=== PATIENT | female | born 1965 | race Caucasian/White ===

== ENCOUNTER 2016-10-31 20:17 | Emergency (ER) | payer SELFPAY ==
[2016-10-31] MEDS ORDERED: Aspirin Low Dose CHEW TAB* 81 MG PO ONE (21:08)
[2016-10-31 21:54] LABS: Hematocrit 36 % (35-47); Hemoglobin 12.6 g/dl (12.0-16.0); Mean Corpuscular HGB Conc 36 g/dl (31-36); Mean Corpuscular Hemoglobin 34 pg (27-31); Mean Corpuscular Volume 95 fL (80-97); Mean Platelet Volume 8 um3 (7.4-10.4); Red Blood Count 3.75 10^6/ul (4.0-5.4); Red Cell Distribution Width 13 % (10.5-15); White Blood Count 10.9 10^3/ul (3.5-10.8)
[2016-10-31 22:07] LABS: Albumin 4.4 g/dL (3.2-5.2); BUN/Creatinine Ratio 9.6 (8-20); Calcium 9.8 mg/dL (8.6-10.3); EGFR African American 53.2 (>60); EGFR Non-African American 41.3 (>60); Globulin 2.8 g/dL (2-4); Potassium 3.3 mmol/L (3.5-5.0); Total Bilirubin 0.6 mg/dL (0.2-1.0); Total Protein 7.2 g/dL (6.4-8.9)
[2016-10-31] MEDS ORDERED: LORazepam INJ* 2 MG/ML 1 ML VIAL IV PUSH ONE (22:09)
[2016-10-31] MEDS ORDERED: Ondansetron INJ* 2 MG/ML VIAL IV ONE (22:10)
--- NOTE | 2016-10-31 22:17 | RAD ---
Indication: Palpitations. Cardiac disease. Anxiety. Comparison: August 27, 2014 Technique: Upright AP 2138 hours Report: Suboptimal inspiration with associated crowding of the pulmonary markings and subsegmental atelectasis. Negative for pleural effusion or pneumothorax. Negative for cardiomegaly. Unremarkable central pulmonary vasculature. IMPRESSION: Suboptimal inspiration for this patient compared with the prior exam with associated mild subsegmental atelectasis. No additional radiographic abnormality.
[2016-10-31 22:38] LABS: TSH (Thyroid Stimulating Horm) 3.5 mcIU/mL (0.34-5.60)
[2016-10-31] MEDS ORDERED: Iodixanol* (CONTRAST) 320 MG/ML 100 ML SDV IV ONE (23:35)
[2016-11-01 00:41] LABS: Urine Bilirubin Negative (Negative); Urine Glucose Negative (Negative); Urine Nitrite Negative (Negative)
[2016-11-01 01:24] VITALS: BP 127/88
--- NOTE | 2016-11-01 08:00 | RAD ---
HISTORY: Elevated d-dimer, tachycardia COMPARISONS: June 30, 2013 TECHNIQUE: Multiple contiguous axial CT scans of the chest were obtained after the administration of nonionic intravenous contrast, timed to the pulmonary arterial phase of contrast enhancement.. Coronal and sagittal multiplanar reformations are also submitted for review. FINDINGS: Evaluation is limited by suboptimal contrast enhancement. The attenuation of the main pulmonary artery at the level of the aorta is between 200-250 Hounsfield units which is of diagnostic borderline quality for the detection of pulmonary embolism. NECK AND THYROID: The lower neck and thyroid are unremarkable. CHEST WALL: There is no lower cervical, axillary, or supraclavicular lymphadenopathy by size criteria. HEART AND PERICARDIUM: The heart is unremarkable. AORTA AND PULMONARY VASCULATURE: The aorta and pulmonary vasculature are normal. MEDIASTINUM: There is no mediastinal lymphadenopathy by size criteria. MARINO: There is no hilar lymphadenopathy by size criteria. AIRWAY AND ESOPHAGUS: The airway is unremarkable, without endobronchial filling defect. The esophagus is grossly normal. LUNG PARENCHYMA: The lungs are clear. PLEURA: No pleural abnormalities are noted. UPPER ABDOMEN: There is a low-attenuation lesion of the left lobe of liver measuring simple fluid in attenuation, measuring 2 cm in size, most consistent with a hepatic cyst. BONES AND SOFT TISSUES: No bone or soft tissue abnormalities are noted. OTHER: None. IMPRESSION: LIMITED STUDY. WITHIN THE LIMITATIONS OF THE STUDY, THERE IS NO PULMONARY ARTERIAL FILLING DEFECT TO SUGGEST PULMONARY EMBOLISM
--- NOTE | 2016-11-01 13:08 | ED ---
Anisha Brcie Rebecca, scribed for Maira Saldivar MD on 10/31/16 at 2110 . Palpitations / Dysrhythmia - HPI Summary HPI Summary: Pt is a 51 y/o F BIBA who presents to ED stating she is experiencing an anxiety attack. Pt states that she had just eaten and was watching television when at 1900 she began experiencing severe epigastric pain, "right below the breasts" as well as N/V and palpitations characterized as fast. 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 Sx aggravated and alleviated by nothing. Denies fever, cough, CP, LE pain and edema. PMHx and FHx mitral valve prolapse. Pt reports that these symptoms are similar to prior mitral valve prolapse complications. Takes Ambien, Metoprolol, Paxil, HCTZ and an herbal supplement for menopasuse. - History of Current Complaint Chief Complaint: EDDysrhythmPalp Time Seen by Provider: 10/31/16 21:08 Hx Obtained From: Patient Onset/Duration: Sudden Onset, Lasting Hours, Still Present Character: Fast Aggravating: Nothing Alleviating: Nothing Associated Signs & Symptoms: Nausea, Vomiting Related History: Similar Episode/Dx as - Prior anxiety attacks - Allergy/Home Medications Allergies/Adverse Reactions: Allergies Allergy/AdvReac Type Severity Reaction Status Date / Time Milk-related Compounds Allergy Intermediate Unknown Verified 09/28/14 14:18 Reaction Details ENVIRONMENTAL Allergy Rash Uncoded 07/25/14 11:14 PMH/Surg Hx/FS Hx/Imm Hx Endocrine/Hematology History: Denies: Hx Diabetes, Hx Thyroid Disease Cardiovascular History: Reports: Hx Valvular Heart Disease - MVP, Other Cardiovascular Problems/Disorders - MVP Denies: Hx Congestive Heart Failure, Hx Hypertension, Hx Pacemaker/ICD Respiratory History: Denies: Hx Asthma, Hx Chronic Obstructive Pulmonary Disease (COPD), Other Respiratory Problems/Disorders GI History: Denies: Hx Ulcer, Other GI Disorders History: Denies: Hx Renal Disease, Other Problems/Disorders Musculoskeletal History: Reports: Hx Arthritis - RIGHT THUMB, BILATERAL KNEES Denies: Other Musculoskeletal History Sensory History: Reports: Hx Contacts or Glasses - GLASSES Denies: Hx Hearing Aid Opthamlomology History: Reports: Hx Contacts or Glasses - GLASSES Psychiatric History: Reports: Hx Anxiety - ON MEDS, Hx Depression - ON MEDS Denies: Hx Panic Disorder - Surgical History Surgery Procedure, Year, and Place: [address], [facility] [place] 2010 HYSTERECTOMY( UTERUS AND CERVIX ONLY) [facility] 2013 LAPAROSCOPIC CHOLECYSTECTOMY, [place]. RIGHT THUMB, 2013, [facility] [place] Hx Anesthesia Reactions: No Infectious Disease History: Denies: Hx Hepatitis, Hx Human Immunodeficiency Virus (HIV), Traveled Outside the [place] in Last 30 Days - Family History Known Family History: Positive: Other - Mitral valve prolapse - Social History Alcohol Use: None Alcohol Amount: ONCE A MONTH Substance Use Type: Reports: None Smoking Status (MU): Never Smoked Tobacco Have You Smoked in the Last Year: No Review of Systems Negative: Fever Positive: Palpitations - fast. Negative: Chest Pain Negative: Cough Positive: Abdominal Pain - Epigastric pain, Vomiting, Nausea Positive: Other - NEGATIVE: LE pain. Negative: Edema All Other Systems Reviewed And Are Negative: Yes Physical Exam Triage Information Reviewed: Yes Vital Signs On Initial Exam: Initial Vitals Temp Pulse Resp BP Pulse Ox 97.4 F 95 18 144/91 100 10/31/16 20:22 10/31/16 20:22 10/31/16 20:22 10/31/16 20:22 10/31/16 20:22 Vital Signs Reviewed: Yes Appearance: Positive: Well-Nourished, Ill-Appearing, Pain Distress - Uncomfortable Skin: Positive: Warm, Skin Color Reflects Adequate Perfusion Head/Face: Positive: Normal Head/Face Inspection Eyes: Positive: Normal ENT: Positive: Normal ENT inspection Neck: Positive: Supple Respiratory/Lung Sounds: Positive: Clear to Auscultation, Breath Sounds Present , Other - HYperventilating Cardiovascular: Positive: RRR, Pulses are Symmetrical in both Upper and Lower Extremities. Negative: Murmur, Leg Edema Left, Leg Edema Right Abdomen Description: Positive: Soft, Other: - Epigastric tenderness Bowel Sounds: Positive: Present Musculoskeletal: Positive: Normal, Strength/ROM Intact, Other - NEGATIVE: calf pain. Negative: Edema Left, Edema Right Neurological: Positive: Sensory/Motor Intact, Alert, Oriented to Person Place, Time, Facial Symmetry, Speech Normal Psychiatric: Positive: Normal - Laz Coma Scale Coma Scale Total: 15 Diagnostics - Vital Signs Vital Signs Temp Pulse Resp BP Pulse Ox 10/31/16 20:22 97.4 F 95 18 144/91 100 - Laboratory Lab Results: Lab Results 10/31/16 10/31/16 10/31/16 Range/Units 21:43 21:43 21:43 WBC 10.9 H (3.5-10.8) 10^3/ul RBC 3.75 L (4.0-5.4) 10^6/ul Hgb 12.6 (12.0-16.0) g/dl Hct 36 (35-47) % MCV 95 (80-97) fL MCH 34 H (27-31) pg MCHC 36 (31-36) g/dl RDW 13 (10.5-15) % Plt Count 282 (150-450) 10^3/ul MPV 8 (7.4-10.4) um3 Neut % (Auto) 76.6 (38-83) % Lymph % (Auto) 16.2 L (25-47) % Montgomery % (Auto) 5.4 (1-9) % Eos % (Auto) 0.3 (0-6) % Baso % (Auto) 1.5 (0-2) % Absolute Neuts (auto) 8.4 H (1.5-7.7) 10^3/ul Absolute Lymphs (auto) 1.8 (1.0-4.8) 10^3/ul Absolute Monos (auto) 0.6 (0-0.8) 10^3/ul Absolute Eos (auto) 0 (0-0.6) 10^3/ul Absolute Basos (auto) 0.2 (0-0.2) 10^3/ul Absolute Nucleated RBC 0 10^3/ul Nucleated RBC % 0 INR (Anticoag Therapy) (0.89-1.11) D-Dimer, Quantitative (Less Than 230) ng/mL Sodium 137 (133-145) mmol/L Potassium 3.3 L (3.5-5.0) mmol/L Chloride 100 L (101-111) mmol/L Carbon Dioxide 27 (22-32) mmol/L Anion Gap 10 (2-11) mmol/L BUN 13 (6-24) mg/dL Creatinine 1.35 H (0.51-0.95) mg/dL Est GFR ( Amer) 53.2 (>60) Est GFR (Non-Af Amer) 41.3 (>60) BUN/Creatinine Ratio 9.6 (8-20) Glucose 171 H (70-100) mg/dL Lactic Acid (0.5-2.0) mmol/L Calcium 9.8 (8.6-10.3) mg/dL Magnesium 2.0 (1.9-2.7) mg/dL Total Bilirubin 0.60 (0.2-1.0) mg/dL AST 182 H (13-39) U/L ALT 68 H (7-52) U/L Alkaline Phosphatase 107 H (34-104) U/L Total Creatine Kinase 86 (10-223) U/L CK-MB (CK-2) 1.3 (0.6-6.3) ng/mL Troponin I 0.00 (<0.04) ng/mL B-Natriuretic Peptide 36 ( - 100) pg/mL Total Protein 7.2 (6.4-8.9) g/dL Albumin 4.4 (3.2-5.2) g/dL Globulin 2.8 (2-4) g/dL Albumin/Globulin Ratio 1.6 (1-3) TSH 3.50 (0.34-5.60) mcIU/mL Urine Color Urine Appearance Urine pH (5-9) Ur Specific [place] (1.010-1.030) Urine Protein (Negative) Urine Ketones (Negative) Urine Blood (Negative) Urine Nitrate (Negative) Urine Bilirubin (Negative) Urine Urobilinogen (Negative) Ur Leukocyte Esterase (Negative) Urine Glucose (Negative) 10/31/16 10/31/16 11/01/16 Range/Units 21:43 21:43 00:33 WBC (3.5-10.8) 10^3/ul RBC (4.0-5.4) 10^6/ul Hgb (12.0-16.0) g/dl Hct (35-47) % MCV (80-97) fL MCH (27-31) pg MCHC (31-36) g/dl RDW (10.5-15) % Plt Count (150-450) 10^3/ul MPV (7.4-10.4) um3 Neut % (Auto) (38-83) % Lymph % (Auto) (25-47) % Montgomery % (Auto) (1-9) % Eos % (Auto) (0-6) % Baso % (Auto) (0-2) % Absolute Neuts (auto) (1.5-7.7) 10^3/ul Absolute Lymphs (auto) (1.0-4.8) 10^3/ul Absolute Monos (auto) (0-0.8) 10^3/ul Absolute Eos (auto) (0-0.6) 10^3/ul Absolute Basos (auto) (0-0.2) 10^3/ul Absolute Nucleated RBC 10^3/ul Nucleated RBC % INR (Anticoag Therapy) 0.86 L (0.89-1.11) D-Dimer, Quantitative 328 H (Less Than 230) ng/mL Sodium (133-145) mmol/L Potassium (3.5-5.0) mmol/L Chloride (101-111) mmol/L Carbon Dioxide (22-32) mmol/L Anion Gap (2-11) mmol/L BUN (6-24) mg/dL Creatinine (0.51-0.95) mg/dL Est GFR ( Amer) (>60) Est GFR (Non-Af Amer) (>60) BUN/Creatinine Ratio (8-20) Glucose (70-100) mg/dL Lactic Acid 4.1 H* (0.5-2.0) mmol/L Calcium (8.6-10.3) mg/dL Magnesium (1.9-2.7) mg/dL Total Bilirubin (0.2-1.0) mg/dL AST (13-39) U/L ALT (7-52) U/L Alkaline Phosphatase (34-104) U/L Total Creatine Kinase (10-223) U/L CK-MB (CK-2) (0.6-6.3) ng/mL Troponin I (<0.04) ng/mL B-Natriuretic Peptide ( - 100) pg/mL Total Protein (6.4-8.9) g/dL Albumin (3.2-5.2) g/dL Globulin (2-4) g/dL Albumin/Globulin Ratio (1-3) TSH (0.34-5.60) mcIU/mL Urine Color Straw Urine Appearance Clear Urine pH 7.5 (5-9) Ur Specific [place] 1.005 L (1.010-1.030) Urine Protein Negative (Negative) Urine Ketones Negative (Negative) Urine Blood Negative (Negative) Urine Nitrate Negative (Negative) Urine Bilirubin Negative (Negative) Urine Urobilinogen Negative (Negative) Ur Leukocyte Esterase Negative (Negative) Urine Glucose Negative (Negative) Result Diagrams: 10/31/16 21:43 10/31/16 21:43 Lab Statement: Any lab studies that have been ordered have been reviewed, and results considered in the medical decision making process. - Radiology CXR Xray Interpretation: Positive (See Comments) - Suboptimal inspiration for this patient compared with the prior exam with associated mild subsegmental atelectasis. No additional radiographic abnormality. ED physician reviewed radiology report and agrees. Radiology Interpretation Completed By: Radiologist - CT CTA Chest CT Interpretation: No Acute Changes - No acute pathology. Possible liver cyst can be followed up with ultrasound. ED phsyicain reviewed radiology report and agrees. CT Interpretation Completed By: Radiologist - EKG 2018 Cardiac Rate: NL - 85 bpm EKG Rhythm: Sinus Rhythm EKG Interpretation: Nl AV/IV CT, prolonged QTC (521), nl axis, Q waves in lead 3 EKG Comparison: Other - Q waves are new, as compared with EKG on 09/28/2014. No other changes. Re-Evaluation - Re-Evaluation First Eval Re-Evaluation Time: 23:35 Comment: Updating the pt on results. Second Eval Re-Evaluation Time: 01:03 Change: Improved Comment: Discussed CTA Chest results. Pain is gone, HR is in the 80s and ready to be D/C. Course/Dx - Course Assessment/Plan: Pt is a 51 y/o F BIBA who presents to ED stating she is experiencing an anxiety attack. Pt states that she had just eaten and was watching television when at 1900 she began experiencing severe epigastric pain, "right below the breasts" as well as N/V and palpitations characterized as fast. 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 Denies fever, cough, CP, LE pain and edema. PMHx and FHx mitral valve prolapse. Pt reports that these symptoms are similar to prior mitral valve prolapse complications. Takes Ambien, Metoprolol, Paxil, HCTZ and an herbal supplement for menopasuse. CXR reveals "suboptimal inspiration for this patient compared with the prior exam with associated mild subsegmental atelectasis." CTA Chest reveals no acute pathology and possible liver cyst. In the ED course, pt received Ativan, Zofran and ASA which improved sx. She will be D/C to home with Dx of chest pain, possible liver cyst and palpitations and a follow up with her PCP. She understands and agrees. Patient medications reviewed this visit. Allergies noted. Elevated BP noted and advised to f/u with PCP. Critical care time of 30 minutes. - Diagnoses Provider Diagnoses: Palpitations, Chest pain, possible liver cyst - Critical Care Time Critical Care Time: 30-74 min - 30 minutes Discharge - Discharge Plan Condition: Stable Disposition: HOME Patient Education Materials: Chest Pain (ED), Palpitations (ED) Referrals: Dillon Loya MD [Medical Doctor] - As Soon As Possible Hortensia Case NP [Primary Care Provider] - Additional Instructions: Your CTA of the chest did not show a pulmonary embolus or any abnormalities, except a possible liver cyst, which can be followed up with your family doctor. The report tonight is just preliminary, but if they still believe a possible liver cyst is present, then your doctor may want to do an ultrasound to evaluate this further. We have given you the name of a sand mixer to follow up on your mitral valve prolapse. Return to the ER if you have any new or worsening symptoms. The documentation as recorded by the Anisha walters Rebecca accurately reflects the service I personally performed and the decisions made by , Maira Saldivar MD.
== END 2016-11-01 01:37 | disposition home or self-care (01) ==
LOC: ED 20:17
DX: R00.2 Palpitations (principal); R07.9 Chest pain, unspecified; F41.8 Other specified anxiety disorders; M19.90 Unspecified osteoarthritis, unspecified site; I38 Endocarditis, valve unspecified
CPT/HCPCS: 71010; 71275; 80053; 81003; 82550; 82553; 83605; 83735; 83880; 84443; 84484; 85025; 85379; 85610; 93005; 96374; 96375; 99282; A9270-GY; J2060; J2405; Q9967

== ENCOUNTER 2017-09-17 16:02 | Emergency (ER) | payer OTHER ==
[2017-09-17] MEDS ORDERED: NS 0.9% 1000 ML* 1,000 ML IV ONE (16:14)
[2017-09-17] MEDS ORDERED: LORazepam INJ* 2 MG/ML 1 ML VIAL IV PUSH ONE (16:41)
--- NOTE | 2017-09-17 16:42 | RAD ---
INDICATION: Palpitations COMPARISON: October 31, 2016 TECHNIQUE: An AP portable view obtained at 1629 hours is submitted. FINDINGS: Bones/Soft Tissues: There are no acute bony findings. Cardiomediastinal: The cardiomediastinal silhouette is normal. Lungs: There are no infiltrates. Pleura: There are no pleural effusions. Other: None IMPRESSION: NO ACTIVE DISEASE.
[2017-09-17 17:00] LABS: ABS Basophils 0.1 10^3/ul (0-0.2); ABS Eosinophils 0 10^3/ul (0-0.6); ABS Lymphocytes 1.9 10^3/ul (1.0-4.8); ABS Monocytes 0.5 10^3/ul (0-0.8); ABS Neutrophils 9.4 10^3/ul (1.5-7.7); ABS Nucleated RBC 0 10^3/ul; Eosinophil % 0.2 % (0-6); Hematocrit 38 % (35-47); Hemoglobin 13.3 g/dl (12.0-16.0); Mean Corpuscular HGB Conc 35 g/dl (31-36); Mean Corpuscular Hemoglobin 33 pg (27-31); Mean Corpuscular Volume 94 fL (80-97); Mean Platelet Volume 8.2 um3 (7.4-10.4); Nucleated Red Blood Cells % 0; Platelet Count 315 10^3/ul (150-450); Red Blood Count 4.02 10^6/ul (4.00-5.40); Red Cell Distribution Width 13 % (10.5-15); White Blood Count 11.9 10^3/ul (3.5-10.8)
[2017-09-17 17:22] LABS: EGFR Non-African American 56.3 (>60)
--- NOTE | 2017-09-17 17:28 | ED ---
Palpitations / Dysrhythmia - HPI Summary HPI Summary: This is selena Anujlaverne Hoskins documenting for attending Dr. Nasir Schaffer MD. A 52 y/o female presents to the ED c/o heart palpitations. According to the patient, she had a Mitral Valve Prolapse where she has heart palpitations once in a while. She was relaxing today and suddenly felt weird. She started to have panic attacks and anxiety along with the feeling intermittently. She noted that she normally has much better control than today. In the ED room, the patient has a pulse of 89 BPM, O2 saturation of 98% and blood pressure of 136/100. She denies any LOC, CP or SOB, however, she vomited earlier. 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 Several ECHO's were done however it came back negative. As per triage, "patient having palpitations today with anxiety. is currently having a bad divorce. does have mitral valve prolapse and with increased stress or caffiene it gives her palpitations. did have ativan today to try and calm down but it did not work". Current medications are Paxil (50 mg BID), betablockers and for her blood pressure. - History of Current Complaint Chief Complaint: EDDysrhythmPalp Time Seen by Provider: 09/17/17 16:13 Hx Obtained From: Patient Onset/Duration: Sudden Onset, Lasting Hours - Intermittent, Still Present Severity Currently: None Character: Skipped Beats Aggravating: Nothing Alleviating: Nothing Associated Signs & Symptoms: Vomiting - Allergy/Home Medications Allergies/Adverse Reactions: Allergies Allergy/AdvReac Type Severity Reaction Status Date / Time Milk Containing Products Allergy Rash Verified 09/17/17 17:58 ENVIRONMENTAL Allergy Rash Uncoded 07/25/14 11:14 PMH/Surg Hx/FS Hx/Imm Hx Endocrine/Hematology History: Denies: Hx Diabetes, Hx Thyroid Disease Cardiovascular History: Reports: Hx Valvular Heart Disease - MVP, Other Cardiovascular Problems/Disorders - MVP Denies: Hx Congestive Heart Failure, Hx Hypertension, Hx Pacemaker/ICD Respiratory History: Denies: Hx Asthma, Hx Chronic Obstructive Pulmonary Disease (COPD), Other Respiratory Problems/Disorders GI History: Denies: Hx Ulcer, Other GI Disorders History: Denies: Hx Dialysis, Hx Renal Disease, Other Problems/Disorders Musculoskeletal History: Reports: Hx Arthritis - RIGHT THUMB, BILATERAL KNEES Denies: Other Musculoskeletal History Sensory History: Reports: Hx Contacts or Glasses - GLASSES Denies: Hx Hearing Aid Opthamlomology History: Reports: Hx Contacts or Glasses - GLASSES Psychiatric History: Reports: Hx Anxiety - ON MEDS, Hx Depression - ON MEDS Denies: Hx Panic Disorder - Surgical History Surgery Procedure, Year, and Place: 1990 [place] [facility] [place]( [place]TERUS AND CERVIX ONLY) [facility] 2013 LAPAROSCOPIC CHOLECYSTECTOMY, [place]. RIGHT THUMB, 2013, [facility] [place] Anesthesia Reactions: No Infectious Disease History: No Infectious Disease History: Denies: Hx Hepatitis, Hx Human Immunodeficiency Virus (HIV), Traveled Outside the [place] in Last 30 Days - Family History Known Family History: Positive: Other - Mitral valve prolapse - Social History Alcohol Use: None Alcohol Amount: ONCE A MONTH Substance Use Type: Reports: None Smoking Status (MU): Never Smoked Tobacco Have You Smoked in the Last Year: No Review of Systems Negative: Fever Positive: Palpitations. Negative: Chest Pain Negative: Shortness Of Breath Positive: Vomiting Neurological: Other - NEGATIVE: LOC All Other Systems Reviewed And Are Negative: Yes Physical Exam - Summary Physical Exam Summary: VITAL SIGNS: Reviewed. GENERAL: Patient is a well-developed and nourished female who is lying comfortable in the stretcher. Patient is not in any acute respiratory distress. HEAD AND FACE: No signs of trauma. No ecchymosis, hematomas or skull depressions. No sinus tenderness. EYES: PERRLA, EOMI x 2, No injected conjunctiva, no nystagmus. EARS: Hearing grossly intact. Ear canals and tympanic membranes are within normal limits. MOUTH: Oropharynx within normal limits. NECK: Supple, trachea is midline, no adenopathy, no JVD, no carotid bruit, no c- spine tenderness, neck with full ROM. CHEST: Symmetric, no tenderness at palpation LUNGS: Clear to auscultation bilaterally. No wheezing or crackles. CVS: Regular rate and rhythm, S1 and S2 present, no murmurs or gallops appreciated. ABDOMEN: Soft, non-tender. No signs of distention. No rebound no guarding, and no masses palpated. Bowel sounds are normal. EXTREMITIES: FROM in all major joints, no edema, no cyanosis or clubbing. NEURO: Alert and oriented x 3. No acute neurological deficits. Speech is normal and follows commands. SKIN: Dry and warm Triage Information Reviewed: Yes Vital Signs On Initial Exam: Initial Vitals Temp Pulse Resp BP Pulse Ox 98.8 F 87 21 135/100 98 09/17/17 16:15 09/17/17 16:15 09/17/17 16:15 09/17/17 16:15 09/17/17 16:15 Vital Signs Reviewed: Yes Diagnostics - Vital Signs Vital Signs Temp Pulse Resp BP Pulse Ox 09/17/17 17:08 18 09/17/17 16:15 98.8 F 87 21 135/100 98 - Laboratory Lab Results: Lab Results 09/17/17 09/17/17 09/17/17 Range/Units 16:52 16:52 16:52 WBC 11.9 H (3.5-10.8) 10^3/ul RBC 4.02 (4.00-5.40) 10^6/ul Hgb 13.3 (12.0-16.0) g/dl Hct 38 (35-47) % MCV 94 (80-97) fL MCH 33 H (27-31) pg MCHC 35 (31-36) g/dl RDW 13 (10.5-15) % Plt Count 315 (150-450) 10^3/ul MPV 8.2 (7.4-10.4) um3 Neut % (Auto) 79.0 (38-83) % Lymph % (Auto) 16.0 L (25-47) % [place] % (Auto) 4.1 (0-7) % Eos % (Auto) 0.2 (0-6) % Baso % (Auto) 0.7 (0-2) % Absolute Neuts (auto) 9.4 H (1.5-7.7) 10^3/ul Absolute Lymphs (auto) 1.9 (1.0-4.8) 10^3/ul Absolute Monos (auto) 0.5 (0-0.8) 10^3/ul Absolute Eos (auto) 0 (0-0.6) 10^3/ul Absolute Basos (auto) 0.1 (0-0.2) 10^3/ul Absolute Nucleated RBC 0 10^3/ul Nucleated RBC % 0 D-Dimer, Quantitative < 200 (Less Than 230) ng/mL Sodium 138 (135-145) mmol/L Potassium 3.2 L (3.5-5.0) mmol/L Chloride 102 (101-111) mmol/L Carbon Dioxide 24 (22-32) mmol/L Anion Gap 12 H (2-11) mmol/L BUN 11 (6-24) mg/dL Creatinine 1.03 H (0.51-0.95) mg/dL Est GFR ( Amer) 68.1 (>60) Est GFR (Non-Af Amer) 56.3 (>60) BUN/Creatinine Ratio 10.7 (8-20) Glucose 154 H (70-100) mg/dL Lactic Acid (0.5-2.0) mmol/L Calcium 9.4 (8.6-10.3) mg/dL Magnesium 1.7 L (1.9-2.7) mg/dL Total Bilirubin 0.30 (0.2-1.0) mg/dL AST 21 (13-39) U/L ALT 20 (7-52) U/L Alkaline Phosphatase 90 (34-104) U/L Total Creatine Kinase 90 (10-223) U/L Troponin I 0.00 (<0.04) ng/mL Total Protein 7.0 (6.4-8.9) g/dL Albumin 4.0 (3.2-5.2) g/dL Globulin 3.0 (2-4) g/dL Albumin/Globulin Ratio 1.3 (1-3) TSH Pending 09/17/17 Range/Units 16:52 WBC (3.5-10.8) 10^3/ul RBC (4.00-5.40) 10^6/ul Hgb (12.0-16.0) g/dl Hct (35-47) % MCV (80-97) fL MCH (27-31) pg MCHC (31-36) g/dl RDW (10.5-15) % Plt Count (150-450) 10^3/ul MPV (7.4-10.4) um3 Neut % (Auto) (38-83) % Lymph % (Auto) (25-47) % [place] % (Auto) (0-7) % Eos % (Auto) (0-6) % Baso % (Auto) (0-2) % Absolute Neuts (auto) (1.5-7.7) 10^3/ul Absolute Lymphs (auto) (1.0-4.8) 10^3/ul Absolute Monos (auto) (0-0.8) 10^3/ul Absolute Eos (auto) (0-0.6) 10^3/ul Absolute Basos (auto) (0-0.2) 10^3/ul Absolute Nucleated RBC 10^3/ul Nucleated RBC % D-Dimer, Quantitative (Less Than 230) ng/mL Sodium (135-145) mmol/L Potassium (3.5-5.0) mmol/L Chloride (101-111) mmol/L Carbon Dioxide (22-32) mmol/L Anion Gap (2-11) mmol/L BUN (6-24) mg/dL Creatinine (0.51-0.95) mg/dL Est GFR ( Amer) (>60) Est GFR (Non-Af Amer) (>60) BUN/Creatinine Ratio (8-20) Glucose (70-100) mg/dL Lactic Acid 4.4 H* (0.5-2.0) mmol/L Calcium (8.6-10.3) mg/dL Magnesium (1.9-2.7) mg/dL Total Bilirubin (0.2-1.0) mg/dL AST (13-39) U/L ALT (7-52) U/L Alkaline Phosphatase (34-104) U/L Total Creatine Kinase (10-223) U/L Troponin I (<0.04) ng/mL Total Protein (6.4-8.9) g/dL Albumin (3.2-5.2) g/dL Globulin (2-4) g/dL Albumin/Globulin Ratio (1-3) TSH Result Diagrams: 09/17/17 16:52 09/17/17 16:52 Lab Statement: Any lab studies that have been ordered have been reviewed, and results considered in the medical decision making process. - Radiology CXR Radiology Interpretation Completed By: Radiologist - No active disease. ED physician reviewed this radiology report. - EKG 1620 Cardiac Rate: NL - 86 BPM EKG Rhythm: Sinus Rhythm EKG Interpretation: No ST elevation. Q-wave in 3. Diffuse ST abnormality EKG Comparison: Other - Similar to previous EKG on 10/31/2016 Re-Evaluation - Re-Evaluation First Eval Re-Evaluation Time: 19:23 Comment: Patient feels better. Course/Dx - Course Assessment/Plan: This patient is a 53-year-old female who presents to the emergency department with chief complaint of having palpitations. The patient also reports that she is having an anxiety attack. Patient denies any chest pain dizziness. Test results without any significant abnormality except for what was a count of 11.9,. Potassium 3.2, creatinine 1.03 glucose 154 lactic acid is 4.4 emanation 1.7. I did give the patient Ativan and IV fluids. The patient doesnt have any signs of infection therefore repeated after hydration the lactic acid they went down to 2.4. Chest x-ray impression: No active disease. After the patient was hydrated and given IM and the patients symptoms improved. At this point the patient is hemodynamically stable alert and oriented 3. I discussed all the findings and test results with the patient. Patient was instructed to return to the emergency room immediately if any of the symptoms return or worsens. Plan of care was discussed with the patient and understands and agrees. All questions were answered at patient satisfaction. There were no further complaints or concerns. Lung exam before discharge: CTA B/L. Good air exchange. No wheezing or crackles heard. CVS: S1 and S2 present. No murmurs appreciated. Patient is alert and oriented x 3. Patient is hemodynamically stable. Patient will be discharged home with follow up PCP in the next 2-3 days - Diagnoses Differential Diagnosis/HQI/PQRI: Positive: Panic Disorder, Paroxymal SVT, Theophylline Toxicity, V-Tach Provider Diagnoses: Anxiety, Palpitations Discharge - Sign-Out/Discharge Documenting (check all that apply): Patient Departure - DISCHARGE - Discharge Plan Condition: Stable Disposition: HOME Patient Education Materials: Heart Palpitations (ED), Anxiety (ED) Referrals: Hortensia Case NP [Primary Care Provider] - 1 Week Additional Instructions: FOLLOW UP WITH YOUR PRIMARY CARE PROVIDER WITHIN ONE WEEK FOR HIGH BLOOD PRESSURE NOTED TODAY. RETURN TO THE ED FOR ANY WORSENING OR NEW SYMPTOMS. - Billing Disposition and Condition Condition: STABLE Disposition: Home
[2017-09-17] MEDS ORDERED: Potassium Chlor TAB* 20 MEQ TAB.ER PO ONE (18:19)
[2017-09-17] MEDS ORDERED: Magnesium Oxide TAB* 400 MG PO ONE (18:19)
[2017-09-17 19:50] LABS: Urine Appearance Clear; Urine Blood Negative (Negative); Urine Color Straw; Urine Ketones Negative (Negative); Urine Protein Negative (Negative); Urine Specific Gravity 1.009 (1.010-1.030); Urine Urobilinogen Negative (Negative)
[2017-09-17 20:40] VITALS: BP 141/89
== END 2017-09-17 20:39 | disposition home or self-care (01) ==
LOC: ED 16:02
DX: F41.0 Panic disorder [episodic paroxysmal anxiety] (principal); R00.2 Palpitations; R11.10 Vomiting, unspecified; F32.9 Major depressive disorder, single episode, unspecified; Z91.011 Allergy to milk products
CPT/HCPCS: 36415; 71045; 80053; 81003; 82550; 83605; 83735; 84443; 84484; 85025; 85379; 93005; 96361; 96374; 99284; A9270-GY; J2060

== ENCOUNTER 2018-12-11 07:48 | Day surgery (SDC) | payer OTHER ==
[~2018-12-11 07:48] MED LIST: Acetaminophen TAB* 325 MG PO PRN
[2018-12-11] MEDS ORDERED: Midazolam* 1 MG/ML 5 ML VIAL (5 MG) ONE (08:55)
[2018-12-11] MEDS ORDERED: fentaNYL* 50 MCG/ML 2 ML VIAL (100 MCG VIAL) ONE (08:55)
[2018-12-11] MEDS ORDERED: Tetracaine 0.5% OPTH.SOL 4 ML* 1 DROP BTL ONE (09:42)
[2018-12-11] MEDS ORDERED: Tropicamide 1% OPTH.SOL* BTL ONE (09:42)
[2018-12-11] MEDS ORDERED: Lidocaine 1% MPF ** 5 ML VIAL ONE (09:42)
[2018-12-11] MEDS ORDERED: Ketorolac 0.5% OPHTH (NF) 0.5 % 5 ML BTL ONE (09:42)
[2018-12-11] MEDS ORDERED: Povidone Iodine 5% OPTH* 30 ML BTL ONE (09:42)
[2018-12-11] MEDS ORDERED: acetaZOLAMIDE TAB* 250 MG ONE (09:42)
[2018-12-11] MEDS ORDERED: Cyclopentolate 1% OPTH.SOL* 2 ML BTL ONE (09:42)
[2018-12-11] MEDS ORDERED: Neomycin/Polymy/Dex OPHTH.OIN* 3.5 GM ONE (09:42)
[2018-12-11] MEDS ORDERED: Phenylephrine OPHTH SOL 2.5%* 2 ML ONE (09:42)
[2018-12-11 10:26] VITALS: BP 129/76
--- NOTE | 2018-12-11 11:52 | OP ---
DATE OF OPERATION: 12/11/2018 - [facility] DATE OF : 1965. SURGEON: Dylon Gordon MD ANESTHESIA: Monitored anesthesia care. PREOPERATIVE DIAGNOSIS: Cataract, right eye. POSTOPERATIVE DIAGNOSIS: Cataract, right eye. OPERATIVE PROCEDURE: Extracapsular cataract extraction of the right eye with intraocular lens implant. IMPLANT: SN60WF 13.0 diopter lens to the right eye. COMPLICATIONS: None. DESCRIPTION OF PROCEDURE: The patient was given phenylephrine 2.5 % and cyclopentolate 1% eye drops to the operative eye in the preoperative area. The patient was taken to the operating room where a time-out was taken to identify the correct patient, site, and side of surgery. The patient's right eye was prepped and draped in the usual sterile fashion with 5% Betadine. A second time- out was taken to verify the correct patient, side, and site of surgery, as well as the correct lens implant. A lid speculum was placed to the right eye. A 1mm paracentesis blade was used to make a clear corneal incision. Preservative-free 1% lidocaine was injected into the anterior chamber. DisCoVisc was then injected into the anterior chamber. A 2.75 mm keratome blade was used to make a triplanar incision. A cystotome initiated a capsulorrhexis, which was completed with Utrata forceps in a continuous and curvilinear manner. Hydrodissection of the lens was performed with BSS on a cannula. The lens could be spun in a capsular bag. The phacoemulsification handpiece was used with a divide-and- conquer technique to remove the nucleus. The I/A handpiece then removed the residual cortical lens material. DisCoVisc was injected to inflate the capsular bag. The planned SN60WF 13.0 diopter lens was injected into the capsular bag. The residual DisCoVisc was removed from the eye with the I/A handpiece. The corneal incisions were hydrated and no leaks occurred at physiologic pressure around 20 mmHg per palpation. The lid speculum was removed and drapes were removed. Maxitrol ointment was placed to the surface of the operative eye. An adhesive patch and shield was then placed on the operative eye. The patient was taken to the postoperative area in stable condition. [id number]/[facility] #: [id number] [facility]
== END 2018-12-11 10:17 | disposition home or self-care (01) ==
LOC: OREAST 07:48
PROVIDERS: ATTEND Student in an Organized Health Care Education/Training Program
DX: H25.11 Age-related nuclear cataract, right eye (principal); H33.011 Retinal detachment with single break, right eye; H33.312 Horseshoe tear of retina without detachment, left eye; H35.372 Puckering of macula, left eye; F41.8 Other specified anxiety disorders; M19.90 Unspecified osteoarthritis, unspecified site; L30.9 Dermatitis, unspecified; I34.1 Nonrheumatic mitral (valve) prolapse
CPT/HCPCS: A9270-GY; J2250; J3010; V2632

== ENCOUNTER 2018-12-18 06:15 | Day surgery (SDC) | payer OTHER ==
[2018-12-18] MEDS ORDERED: Midazolam* 1 MG/ML 2 ML VIAL (2 MG) ONE (07:24)
[2018-12-18] MEDS ORDERED: Labetalol IV* 5 MG/ML 20 ML VIAL ONE (07:49)
[2018-12-18 08:18] VITALS: BP 116/78
[2018-12-18] MEDS ORDERED: Neomycin/Polymy/Dex OPHTH.OIN* 3.5 GM ONE (08:57)
[2018-12-18] MEDS ORDERED: acetaZOLAMIDE TAB* 250 MG ONE (08:57)
[2018-12-18] MEDS ORDERED: Povidone Iodine 5% OPTH* 30 ML BTL ONE (08:57)
[2018-12-18] MEDS ORDERED: Tetracaine 0.5% OPTH.SOL 4 ML* 1 DROP BTL ONE (08:57)
[2018-12-18] MEDS ORDERED: Cyclopentolate 1% OPTH.SOL* 2 ML BTL ONE (08:57)
[2018-12-18] MEDS ORDERED: Lidocaine 1% MPF ** 5 ML VIAL ONE (08:57)
[2018-12-18] MEDS ORDERED: Ketorolac 0.5% OPHTH (NF) 0.5 % 5 ML BTL ONE (08:57)
[2018-12-18] MEDS ORDERED: Tropicamide 1% OPTH.SOL* BTL ONE (08:57)
[2018-12-18] MEDS ORDERED: Phenylephrine OPHTH SOL 2.5%* 2 ML ONE (08:57)
--- NOTE | 2018-12-18 10:11 | OP ---
DATE OF OPERATION: 12/18/2018 - [facility] DATE OF : 1965. SURGEON: Dylon Gordon MD ANESTHESIA: Monitored anesthesia care. PREOPERATIVE DIAGNOSIS: Cataract, left eye. POSTOPERATIVE DIAGNOSIS: Cataract, left eye. OPERATIVE PROCEDURE: Extracapsular cataract extraction of the left eye with intraocular lens implant. IMPLANT: SN60WF 13.0 diopter lens to the left eye. COMPLICATIONS: None. DESCRIPTION OF PROCEDURE: The patient was given phenylephrine 2.5 % and cyclopentolate 1% eye drops to the operative eye in the preoperative area. The patient was taken to the operating room where a time-out was taken to identify the correct patient, site, and side of surgery. The patient's left eye was prepped and draped in the usual sterile fashion with 5% Betadine. A second time- out was taken to verify the correct patient, side, and site of surgery, as well as the correct lens implant. A lid speculum was placed to the left eye. A 1mm paracentesis blade was used to make a clear corneal incision. Preservative-free 1% lidocaine was injected into the anterior chamber. DisCoVisc was then injected into the anterior chamber. A 2.75 mm keratome blade was used to make a triplanar incision. A cystotome initiated a capsulorrhexis, which was completed with Utrata forceps in a continuous and curvilinear manner. Hydrodissection of the lens was performed with BSS on a cannula. The lens could be spun in a capsular bag. The phacoemulsification handpiece was used with a divide-and- conquer technique to remove the nucleus. The I/A handpiece then removed the residual cortical lens material. DisCoVisc was injected to inflate the capsular bag. The planned SN60WF 13.0 diopter lens was injected into the capsular bag. The residual DisCoVisc was removed from the eye with the I/A handpiece. The corneal incisions were hydrated and no leaks occurred at physiologic pressure around 20 mmHg per palpation. The lid speculum was removed and drapes were removed. Maxitrol ointment was placed to the surface of the operative eye. An adhesive patch and shield was then placed on the operative eye. The patient was taken to the postoperative area in stable condition. [id number]/[facility] #: [id number] [facility]
== END 2018-12-18 08:10 | disposition home or self-care (01) ==
LOC: OREAST 06:15
PROVIDERS: ATTEND Student in an Organized Health Care Education/Training Program
DX: H25.12 Age-related nuclear cataract, left eye (principal); H33.312 Horseshoe tear of retina without detachment, left eye; H35.372 Puckering of macula, left eye; H33.011 Retinal detachment with single break, right eye; I10 Essential (primary) hypertension; Z96.1 Presence of intraocular lens; Z90.710 Acquired absence of both cervix and uterus
CPT/HCPCS: A9270-GY; J2250; V2632